=== PATIENT | female | born 1980 | race Caucasian/White ===

== ENCOUNTER 2018-09-09 05:24 | Day surgery (SDC) | payer OTHER ==
[~2018-09-09 05:24] MED LIST: LOW OGESTREL; SAFYRAL TABLET1 EACH PO; ZYRTEC10 M3 PO
[2018-09-09] MEDS ORDERED: NORETHINDRONE AC5 MG PO (08:44)
== END 2018-09-09 12:35 | disposition home or self-care (01) ==
LOC: CIR.AMB 05:24
DX: N72 Inflammatory disease of cervix uteri (principal)

== ENCOUNTER 2018-09-11 21:27 | Emergency (ER) | payer OTHER ==
[~2018-09-11] VITALS: Ht 167.6 cm; Wt 100.7 kg
[~2018-09-11 21:27] MED LIST changes: +NORETHINDRONE AC5 MG PO
[2018-09-12] MEDS ORDERED: IBUPROFEN800 MG PO (03:53)
== END 2018-09-12 04:21 | disposition home or self-care (01) ==
LOC: ER 21:27
DX: T88.59XA Other complications of anesthesia, initial encounter (principal); G44.40 Drug-induced headache, not elsewhere classified, not intractable

== ENCOUNTER 2018-09-12 09:00 | Day surgery (SDC) | payer OTHER ==
[~2018-09-12 09:00] MED LIST changes: +IBUPROFEN800 MG PO
== END 2018-09-12 16:00 | disposition home or self-care (01) ==
LOC: CIR.AMB 09:00
DX: G97.1 Other reaction to spinal and lumbar puncture (principal)

== ENCOUNTER → 2019-06-01 | Outpatient (CLI) | payer OTHER | END | disposition home or self-care (01) | LOC: PRENATAL 14:25 | DX: O24.312 Unspecified pre-existing diabetes mellitus in pregnancy, second trimester (principal); O09.212 Supervision of pregnancy with history of pre-term labor, second trimester; O34.12 Maternal care for benign tumor of corpus uteri, second trimester; O35.3XX0 Maternal care for (suspected) damage to fetus from viral disease in mother, not applicable or unspecified ==

== ENCOUNTER → 2019-08-01 | Outpatient (CLI) | payer OTHER | END | disposition home or self-care (01) | LOC: PRENATAL 08:27 | DX: O26.843 Uterine size-date discrepancy, third trimester (principal); O24.410 Gestational diabetes mellitus in pregnancy, diet controlled; O09.523 Supervision of elderly multigravida, third trimester; O34.13 Maternal care for benign tumor of corpus uteri, third trimester ==

== ENCOUNTER → 2019-08-28 | Outpatient (CLI) | payer OTHER | END | disposition home or self-care (01) | LOC: PRENATAL 07:55 | DX: O26.843 Uterine size-date discrepancy, third trimester (principal); O09.513 Supervision of elderly primigravida, third trimester; O99.89 Other specified diseases and conditions complicating pregnancy, childbirth and the puerperium; O36.8191 Decreased fetal movements, unspecified trimester, fetus 1; O24.410 Gestational diabetes mellitus in pregnancy, diet controlled ==

== ENCOUNTER 2019-09-28 16:23 | Inpatient (IN) | payer OTHER ==
[~2019-09-28] VITALS: Ht 167.6 cm; Wt 94.8 kg
[2019-09-28] MEDS ORDERED: GLUMETZA500 MG PO (19:17)
[2019-09-28] MEDS ORDERED: FORTAMET1000 MG PO (19:17)
== END 2019-09-29 14:12 | disposition home or self-care (01) | DRG 832 ==
LOC: LDR 16:23
PROVIDERS: ADMIT Obstetrics & Gynecology
DX: O13.3 Gestational [pregnancy-induced] hypertension without significant proteinuria, third trimester (principal); O24.113 Pre-existing type 2 diabetes mellitus, in pregnancy, third trimester; O09.523 Supervision of elderly multigravida, third trimester; E11.9 Type 2 diabetes mellitus without complications; Z3A.37 37 weeks gestation of pregnancy